=== PATIENT | male | born 1990 | race Hispanic/Latino ===

== ENCOUNTER 2021-04-27 20:29 | Emergency (ER) | payer SELFPAY ==
[~2021-04-27] VITALS: Ht 167.6 cm; Wt 58.1 kg
[2021-04-27 20:31] VITALS: BP 129/81
[2021-04-27] MEDS ORDERED: DIPH,PERTUSS(ACELL),TET VAC/PF 0.5 ML VIAL IM ONE (22:30)
[2021-04-27] MEDS ORDERED: CEPH500B PO (22:36)
[2021-04-27] MEDS ORDERED: TETANUS/DIPHTHERIA TOXOID [ADULT] 0.5 ML VIAL IM ONE (22:58)
== END 2021-04-27 23:19 | disposition home or self-care (01) ==
LOC: EDH 20:29
DX: S91.331A Puncture wound without foreign body, right foot, initial encounter (principal); W45.0XXA Nail entering through skin, initial encounter; Y93.89 Activity, other specified; Y92.89 Other specified places as the place of occurrence of the external cause; Y99.8 Other external cause status
CPT/HCPCS: 73630; 90471; 90714